=== PATIENT | female | born 1990 | race Caucasian/White ===

== ENCOUNTER 2018-12-31 08:38 | Emergency (ER) | payer BC ==
[2018-12-31 08:49] VITALS: BP 121/65
--- NOTE | 2018-12-31 10:07 | UC ---
General HPI - HPI Summary HPI Summary: Here for tick bite - concern there may be remnants and she may have Lyme exposure. Knows it was not there yesterday AM and likely there after she walked her dog last night around 7:30 pm. Noticed it this morning in the shower - initially thought it was a scab. Sore to the area. Tick appeared flat and not engorged. Meds: REviewed - History of Current Complaint Chief Complaint: David Stated Complaint: TICK BITE Time Seen by Provider: 12/31/18 09:51 Hx Last Menstrual Period: 08/18/2018 Pain Intensity: 2 - Allergy/Home Medications Allergies/Adverse Reactions: Allergies Allergy/AdvReac Type Severity Reaction Status Date / Time cat dander Allergy Unknown Verified 12/31/18 08:49 Reaction Details Home Medications: Home Medications Fluticasone Propionate [Flonase Allergy Relief] 50 mcg NA 12/31/18 [History] PMH/Surg Hx/FS Hx/Imm Hx Previously Healthy: Yes - Surgical History Surgical History: Yes Surgery Procedure, Year, and Place: lasix - Family History Known Family History: Positive: Diabetes - DM type I - Social History Alcohol Use: Rare Substance Use Type: None Smoking Status (MU): Never Smoked Tobacco Review of Systems All Other Systems Reviewed And Are Negative: Yes Physical Exam Triage Information Reviewed: Yes Appearance: Well-Appearing Vital Signs: Initial Vital Signs Temp 98.2 F 12/31/18 08:45 Pulse 84 12/31/18 08:45 Resp 18 12/31/18 08:45 BP 121/65 12/31/18 08:45 Pulse Ox 99 12/31/18 08:45 Vital Signs Reviewed: Yes Skin: Positive: Other - circular erythema on left inner lower leg, mildly raised with some tenderness. No foreign body noted. Not consistent with bull' s eye rash Course/Dx - Course Course Of Treatment: This is a 28 yr old who removed a tick this morning - approx 12 hours in skin, not engorged, no remaining pieces in skin Assessment local tick bite reaction Plan Risk of getting Lyme from this tick bite is extremely low Monitor for bull's eye type rash and/or flu like symptoms - return to urgent care for further evaluation - Diagnoses Provider Diagnosis: Tick bite Discharge - Sign-Out/Discharge Documenting (check all that apply): Patient Departure All imaging exams completed and their final reports reviewed: No Studies - Discharge Plan Condition: Good Disposition: HOME Patient Education Materials: Tick Bite (ED) Referrals: No Primary Care Phys,NOPCP [Primary Care Provider] - Additional Instructions: Risk of getting Lyme from this tick bite is extremely low Monitor for bull's eye type rash and/or flu like symptoms - return to urgent care for further evaluation - Billing Disposition and Condition Condition: GOOD Disposition: Home
== END 2018-12-31 10:10 | disposition home or self-care (01) ==
LOC: UCEAST 08:38
DX: S70.362A Insect bite (nonvenomous), left thigh, initial encounter (principal); W57.XXXA Bitten or stung by nonvenomous insect and other nonvenomous arthropods, initial encounter; Y92.9 Unspecified place or not applicable
CPT/HCPCS: 99211; G0463

== ENCOUNTER 2019-05-16 11:04 | Emergency (ER) | payer BC ==
[2019-05-16 11:11] VITALS: BP 136/79
--- NOTE | 2019-05-16 11:38 | UC ---
Headache HPI - HPI Summary HPI Summary: The patient is a 28-year-old female that developed some visual issues about 8: 30 AM she sought some squiggles and flashes of light and then later developed a holo-cranial headaches. Initially she had severe nausea but that has passed. She has had no recent head trauma. She is photophobic. She took Excedrin prior to arrival here. She states that since her teens she has had similar headaches except for the visual symptoms. He has never seen a doctor for her headaches. She usually takes an aoxp-piy-diukvri analgesic and goes to bed. She states that she gets one to 2 headaches per month. He states that recently her frequency of headaches has increased. She states that she currently gets 2- 3 headaches per week. She has had mild allergic rhinitis symptoms. She denies any fever or chills. - History Of Current Complaint Chief Complaint: UCHeadache Stated Complaint: HEADACHE Time Seen by Provider: 05/16/19 11:31 Hx Obtained From: Patient Hx Last Menstrual Period: 08/18/2018 Onset/Duration: Gradual Onset, Lasting Hours Onset Of Symptoms: Gradual Initially Headache Was: Initial Pain Scale(0-10)= - 7 Currently Pain Is: Moderate Pain Intensity: 7 Pain Scale Used: 0-10 Numeric Timing: Constant Character: Throbbing, Pressure, Typical Headache Location of Headache: Diffuse Aggravating Factor(s): Nothing Allevating Factor(s): Medication Associated Signs And Symptoms: Positive: Dizziness, Nausea, Visual Changes - see HPI. Negative: Seizure, Vomiting, Sinus Pressure, Fever, Neck Pain, Neck Stiffness, Decreased LOC - Allergies/Home Medications Allergies/Adverse Reactions: Allergies Allergy/AdvReac Type Severity Reaction Status Date / Time cat dander Allergy Unknown Verified 12/31/18 08:49 Reaction Details Home Medications: Home Medications Aspirin/Acetaminophen/Caffeine [Excedrin Migraine Caplet] 2 each PO 05/16/19 [ History] PMH/Surg Hx/FS Hx/Imm Hx Previously Healthy: Yes - Surgical History Surgical History: Yes Surgery Procedure, Year, and Place: lasix - Family History Known Family History: Positive: Diabetes - DM type I - Social History Alcohol Use: Rare Substance Use Type: None Smoking Status (MU): Never Smoked Tobacco Review of Systems All Other Systems Reviewed And Are Negative: Yes Constitutional: Positive: Negative Skin: Positive: Negative Eyes: Positive: Photophobia ENT: Positive: Negative Respiratory: Positive: Negative Cardiovascular: Positive: Negative Gastrointestinal: Positive: Nausea Genitourinary: Positive: Negative Motor: Positive: Negative Neurovascular: Positive: Negative Musculoskeletal: Positive: Negative Neurological: Positive: Headache Psychological: Positive: Negative Physical Exam Triage Information Reviewed: Yes Appearance: Well-Appearing, No Pain Distress, Well-Nourished Vital Signs: Initial Vital Signs Temp 98.3 F 05/16/19 11:07 Pulse 61 05/16/19 11:07 Resp 18 05/16/19 11:07 BP 136/79 05/16/19 11:07 Pulse Ox 100 05/16/19 11:07 Vital Signs Reviewed: Yes Eyes: Positive: Conjunctiva Clear ENT: Positive: Hearing grossly normal, Uvula midline. Negative: Nasal congestion, Nasal drainage, Tonsillar swelling, Tonsillar exudate, Hoarse voice Neck: Positive: Supple, Nontender, No Lymphadenopathy Respiratory: Positive: Lungs clear, Normal breath sounds, No respiratory distress Cardiovascular: Positive: RRR Abdomen Description: Positive: Nontender, No Organomegaly Bowel Sounds: Positive: Present Musculoskeletal: Positive: ROM Intact, No Edema Neurological: Positive: Alert, Other: - cn 2-12 intact, no focal findings, normal gait, brisk and symmetrical DTRs Psychological Exam: Normal Skin Exam: Normal Diagnostics - Radiology No standard instances Radiology Interpretation Completed By: Radiologist Summary of Radiographic Findings: CT brain - negative Re-Evaluation - Re-Evaluation First Eval Change: Unchanged - Headache 12/11, no nausea, declines analgesic Headache Course/Dx - Differential Dx/Diagnosis Provider Diagnosis: Migraine headache with aura Discharge ED - Sign-Out/Discharge Documenting (check all that apply): Patient Departure All imaging exams completed and their final reports reviewed: Yes - Discharge Plan Condition: Stable Disposition: HOME Prescriptions: Ondansetron TAB* [Zofran Tab*] 4 mg PO Q6H PRN #10 tab PRN Reason: Nausea Patient Education Materials: Acute Headache (ED) Referrals: [facility] [place] [facility] REFERRAL [Outside] - 2 Weeks Jose R Tavera MD [Medical Doctor] - As Soon As Possible Additional Instructions: CT was normal You symptoms suggest migraine headache You need to find a primary care provider Due to frequency of headaches I suggest neurological referral aleve 1-2 twice daily as needed for headache zofran if needed for nausea rest fluids recheck for new or worsening symptoms - Billing Disposition and Condition Condition: STABLE Disposition: Home
== END 2019-05-16 12:32 | disposition home or self-care (01) ==
LOC: UCEAST 11:04
DX: G43.109 Migraine with aura, not intractable, without status migrainosus (principal); Z79.82 Long term (current) use of aspirin
CPT/HCPCS: 70450; 99212; G0463